=== PATIENT | male | born 1985 | race Caucasian/White ===

== ENCOUNTER 2018-03-12 10:38 | Inpatient (IN) | payer OTHER ==
[2018-03-12] MEDS ORDERED: NITROGLYCERIN OINT 1 INCH/GM PACKET TOPICAL STA (10:54)
[2018-03-12] MEDS ORDERED: IPRATROPIUM-ALBUTEROL 3 ML NEB INHALATION STA (10:54)
[2018-03-12] MEDS ORDERED: FUROSEMIDE 10 MG/ML 4 ML VIAL IV STA (10:54)
--- NOTE | 2018-03-12 10:57 | ED ---
General Adult HPI - General Chief complaint: Shortness of Breath Stated complaint: Shortness of Breath Time Seen by Provider: 03/12/18 10:50 Source: patient, RN notes reviewed Mode of arrival: wheelchair Limitations: no limitations - History of Present Illness Initial comments: Patient is a pleasant 32-year-old male presenting to the emergency department with difficulty breathing. Symptoms have been present for several weeks. Patient occasionally gets chest discomfort with exertion. Patient does have occasional mild cough. Patient did have flu symptoms several weeks ago however that has resolved. Patient did go to urgent care today and see Dr. Andrews. Dr. Andrews did call here requesting patient have further evaluation. He was concern for chest x-ray with cardiomegaly, possible pericardial effusion and requests echo. He also made mention of hypertension with blood pressure 210/128. There was some wheezing on exam. Patient does admit to having some swelling of his legs without any calf tenderness. - Related Data Home Medications Medication Instructions Recorded Confirmed Albuterol Inhaler [Ventolin Hfa 1 - 2 puff INHALATION RT-Q6H PRN 03/12/18 Inhaler] Aspirin EC [Ecotrin] 325 mg PO HS 03/12/18 03/12/18 Loratadine [Claritin] 10 mg PO DAILY 03/12/18 03/12/18 diphenhydrAMINE HCL [Benadryl] 50 mg PO HS PRN 03/12/18 03/12/18 Allergies Allergy/AdvReac Type Severity Reaction Status Date / Time peanut [Peanut Butter] Allergy Rash/Hives Verified 03/12/18 10:45 Penicillins AdvReac Unknown Verified 03/12/18 11:53 Review of Systems ROS Statement: Those systems with pertinent positive or pertinent negative responses have been documented in the HPI. ROS Other: All systems not noted in ROS Statement are negative. Constitutional: Denies: fever Eyes: Denies: eye pain ENT: Denies: ear pain Respiratory: Reports: cough, dyspnea Cardiovascular: Reports: chest pain, edema Endocrine: Denies: polydipsia Gastrointestinal: Denies: abdominal pain Genitourinary: Denies: dysuria Musculoskeletal: Denies: back pain Skin: Denies: rash Neurological: Denies: weakness Past Medical History Past Medical History: Thyroid Disorder Additional Past Medical History / Comment(s): morbid obesity History of Any Multi-Drug Resistant Organisms: None Reported Past Surgical History: No Surgical Hx Reported Past Psychological History: No Psychological Hx Reported Smoking Status: Former smoker Past Alcohol Use History: Occasional Past Drug Use History: None Reported General Exam Limitations: no limitations General appearance: alert, in no apparent distress, obese Head exam: Present: atraumatic Eye exam: Present: normal appearance Neck exam: Present: normal inspection Respiratory exam: Present: wheezes Cardiovascular Exam: Present: regular rate, normal rhythm Expanded Peripheral pulses: 2+: Radial (R), Radial (L), Dorsalis Pedis (R), Dorsalis Pedis (L) GI/Abdominal exam: Present: soft. Absent: tenderness, guarding Extremities exam: Present: pedal edema. Absent: calf tenderness Back exam: Present: normal inspection Neurological exam: Present: alert Psychiatric exam: Present: normal affect, normal mood Skin exam: Present: normal color Course Vital Signs 03/12/18 03/12/18 03/12/18 10:40 11:28 11:39 Temperature 98.3 F Pulse Rate 105 H 98 95 Respiratory 24 Rate Blood Pressure 228/159 O2 Sat by Pulse 97 Oximetry EKG Findings - EKG Comments: EKG Findings:: Sinus tachycardia 101. WI 164. QRS 90. QT 372. QTC 42. Normal axis. Normal QRS. No acute ST change. Medical Decision Making - Medical Decision Making Patient reevaluated and updated. Patient has continued hypertension. Case was discussed in detail with Dr. man, covering for Dr. Clements, who will admit for Dr. Andrews. Case also discussed in detail with Dr. Nickerson, who recommends losartan 50 twice a day, Coreg 25 twice a day, Lipitor 20 mg. No aspirin at this time secondary to concern for bleeding with hypertension. No heparin. - Lab Data Result diagrams: 03/12/18 11:05 03/12/18 11:05 Lab Results 03/12/18 03/12/18 03/12/18 Range/Units 11:05 11:05 11:05 WBC 10.8 H (3.8-10.6) k/uL RBC 4.56 (4.30-5.90) m/uL Hgb 12.6 L (13.0-17.5) gm/dL Hct 39.1 (39.0-53.0) % MCV 85.8 (80.0-100.0) fL MCH 27.6 (25.0-35.0) pg MCHC 32.1 (31.0-37.0) g/dL RDW 15.8 H (11.5-15.5) % Plt Count 231 (150-450) k/uL Neutrophils % 78 % Lymphocytes % 13 % Monocytes % 5 % Eosinophils % 3 % Basophils % 0 % Neutrophils # 8.4 H (1.3-7.7) k/uL Lymphocytes # 1.4 (1.0-4.8) k/uL Monocytes # 0.6 (0-1.0) k/uL Eosinophils # 0.3 (0-0.7) k/uL Basophils # 0.1 (0-0.2) k/uL Hypochromasia Slight PT (9.0-12.0) sec INR (<1.2) APTT (22.0-30.0) sec Sodium 140 (137-145) mmol/L Potassium 4.4 (3.5-5.1) mmol/L Chloride 104 (98-107) mmol/L Carbon Dioxide 25 (22-30) mmol/L Anion Gap 11 mmol/L BUN 16 (9-20) mg/dL Creatinine 1.04 (0.66-1.25) mg/dL Est GFR (CKD-EPI)AfAm >90 (>60 ml/min/1.73 sqM) Est GFR (CKD-EPI)NonAf >90 (>60 ml/min/1.73 sqM) Glucose 127 H (74-99) mg/dL Calcium 8.7 (8.4-10.2) mg/dL Total Bilirubin 0.8 (0.2-1.3) mg/dL AST 43 (17-59) U/L ALT 52 (21-72) U/L Alkaline Phosphatase 46 (38-126) U/L Total Creatine Kinase 405 H (55-170) U/L CK-MB (CK-2) 3.3 H* (0.0-2.4) ng/mL CK-MB (CK-2) Rel Index 0.8 Troponin I 0.051 H* (0.000-0.034) ng/mL NT-Pro-B Natriuret Pep pg/mL Total Protein 6.7 (6.3-8.2) g/dL Albumin 3.8 (3.5-5.0) g/dL 03/12/18 03/12/18 Range/Units 11:05 11:05 WBC (3.8-10.6) k/uL RBC (4.30-5.90) m/uL Hgb (13.0-17.5) gm/dL Hct (39.0-53.0) % MCV (80.0-100.0) fL MCH (25.0-35.0) pg MCHC (31.0-37.0) g/dL RDW (11.5-15.5) % Plt Count (150-450) k/uL Neutrophils % % Lymphocytes % % Monocytes % % Eosinophils % % Basophils % % Neutrophils # (1.3-7.7) k/uL Lymphocytes # (1.0-4.8) k/uL Monocytes # (0-1.0) k/uL Eosinophils # (0-0.7) k/uL Basophils # (0-0.2) k/uL Hypochromasia PT 10.3 (9.0-12.0) sec INR 1.1 (<1.2) APTT 22.8 (22.0-30.0) sec Sodium (137-145) mmol/L Potassium (3.5-5.1) mmol/L Chloride (98-107) mmol/L Carbon Dioxide (22-30) mmol/L Anion Gap mmol/L BUN (9-20) mg/dL Creatinine (0.66-1.25) mg/dL Est GFR (CKD-EPI)AfAm (>60 ml/min/1.73 sqM) Est GFR (CKD-EPI)NonAf (>60 ml/min/1.73 sqM) Glucose (74-99) mg/dL Calcium (8.4-10.2) mg/dL Total Bilirubin (0.2-1.3) mg/dL AST (17-59) U/L ALT (21-72) U/L Alkaline Phosphatase (38-126) U/L Total Creatine Kinase (55-170) U/L CK-MB (CK-2) (0.0-2.4) ng/mL CK-MB (CK-2) Rel Index Troponin I (0.000-0.034) ng/mL NT-Pro-B Natriuret Pep 1960 pg/mL Total Protein (6.3-8.2) g/dL Albumin (3.5-5.0) g/dL - Radiology Data Radiology results: image reviewed (Chest x-ray reviewed from Dr. Andrews does show some cardiomegaly and increased interstitial markings.) Critical Care Time Critical Care Time: Yes Total Critical Care Time: 33 Disposition Clinical Impression: Hypertensive emergency, Pericardial effusion Disposition: ADMITTED IP TO THIS [facility] Condition: Serious Is patient prescribed a controlled substance at d/c from ED?: No Referrals: Homero Andrews MD [Primary Care Provider] - 1-2 days Decision Time: 12:14
[2018-03-12 11:18] LABS: Basophils # (A) 0.1 k/uL (0-0.2); Basophils % (A) 0 %; Eosinophils # (A) 0.3 k/uL (0-0.7); Eosinophils % (A) 3 %; HCT 39.1 % (39.0-53.0); HGB 12.6 gm/dL (13.0-17.5); Hypochromasia Slight; Lymphocytes # (A) 1.4 k/uL (1.0-4.8); Lymphocytes % (A) 13 %; MCH 27.6 pg (25.0-35.0); MCHC 32.1 g/dL (31.0-37.0); MCV 85.8 fL (80.0-100.0); Mean Platelet Volume 7.4; Monocytes # (A) 0.6 k/uL (0-1.0); Monocytes % (A) 5 %; Neutrophils # (A) 8.4 k/uL (1.3-7.7); Neutrophils % (A) 78 %; Platelet Count 231 k/uL (150-450); RBC 4.56 m/uL (4.30-5.90); RDW 15.8 % (11.5-15.5); WBC 10.8 k/uL (3.8-10.6)
[2018-03-12 11:31] LABS: INR 1.1 (<1.2); Partial Thromboplastin Time 22.8 sec (22.0-30.0); Prothrombin Time 10.3 sec (9.0-12.0)
[2018-03-12 11:45] LABS: ALT 52 U/L (21-72); AST 43 U/L (17-59); Albumin 3.8 g/dL (3.5-5.0); Alkaline Phosphatase 46 U/L (38-126); Anion Gap 11 mmol/L; Blood Urea Nitrogen 16 mg/dL (9-20); Calcium 8.7 mg/dL (8.4-10.2); Carbon Dioxide 25 mmol/L (22-30); Chloride 104 mmol/L (98-107); Glucose 127 mg/dL (74-99); Sodium 140 mmol/L (137-145); Total Bilirubin 0.8 mg/dL (0.2-1.3); Total Protein 6.7 g/dL (6.3-8.2)
[2018-03-12 11:48] LABS: Potassium 4.4 mmol/L (3.5-5.1)
[2018-03-12 11:49] LABS: Creatine Kinase MB 3.3 ng/mL (0.0-2.4); Troponin I 0.051 ng/mL (0.000-0.034)
[2018-03-12] MEDS ORDERED: ENALAPRILAT 1.25 MG/ML 1 ML VIAL IVP STA (12:04)
[2018-03-12] MEDS ORDERED: NITROGLYCERIN SL TABS 0.4 MG TAB SUBLINGUAL PRN (12:14)
[2018-03-12] MEDS ORDERED: ATORVASTATIN 20 MG TAB PO STA (12:16)
[2018-03-12] MEDS: LOSARTAN 50 MG TAB PO SCH ×2 (12:48→22:22)
[2018-03-12] MEDS: CARVEDILOL 12.5 MG TAB PO SCH ×2 (12:48→17:19)
--- NOTE | 2018-03-12 16:58 | P.HPIM ---
History of Present Illness This is a pleasant 52 years old male with past medical history of morbid obesity , hypothyroidism, ex-smoker who presents because of dyspnea or several weeks duration associated with mild leg swelling. Patient states that his initial complaint was dyspnea which was a started 3 weeks ago and by the time he got an appointment with his PCP today his blood pressure was high with SBP 270 as per patient and they were concerned about his chest x-ray and EKG. As per report there was suspicion of pericardial disease for enlarged heart on the chest x- ray report. This was associated with worsening leg swelling and tenderness which is mild edema started yesterday as per patient. Patient denies any chest pain no dizziness or syncope. No change in urine or bowel habits. No fever. In the emergency room his troponins was noted to be 0.051. BNP 1960 sodium 140 potassium 4.4 creatinine 1.0 WBC mildly elevated at 10.8 K. Hemoglobin 12.6 and platelets 231 EKG shows sinus tachycardia at 101 BPM with QTC of 482. In the emergency room patient got Lasix 40 mg IV x1. Patient was admitted to the telemetry floor for evaluation of his symptoms. Cardiology team has been contacted by ED as per staff. Echo is done and result is pending Review of Systems CONSTITUTIONAL: No fever, no malaise, no fatigue. HEENT: No recent visual problems or hearing problems. Denied any sore throat. CARDIOVASCULAR: No orthopnea, PND, no palpitations, no syncope. PULMONARY: No shortness of breath, no cough, no hemoptysis. GASTROINTESTINAL: No diarrhea, no nausea, no vomiting, no abdominal pain. Normoactive bowel sounds. NEUROLOGICAL: No headaches, no weakness, no numbness. HEMATOLOGICAL: Denies any bleeding or petechiae. GENITOURINARY: Denies any burning micturition, frequency, or urgency. MUSCULOSKELETAL/RHEUMATOLOGICAL: Denies any joint pain, swelling, or any muscle pain. ENDOCRINE: Denies any polyuria or polydipsia. Past Medical History Past Medical History: Thyroid Disorder Additional Past Medical History / Comment(s): morbid obesity History of Any Multi-Drug Resistant Organisms: None Reported Past Surgical History: No Surgical Hx Reported Past Anesthesia/Blood Transfusion Reactions: No Reported Reaction Past Psychological History: No Psychological Hx Reported Smoking Status: Former smoker Past Alcohol Use History: Occasional Past Drug Use History: None Reported - Past Family History Father Family Medical History: Cancer, Diabetes Mellitus Additional Family Medical History / Comment(s): BRAIN C.A. Mother Family Medical History: Hypertension Medications and Allergies Home Medications Medication Instructions Recorded Confirmed Type Albuterol Inhaler [Ventolin Hfa 1 - 2 puff INHALATION RT-Q6H PRN 03/12/18 History Inhaler] Aspirin EC [Ecotrin] 325 mg PO HS 03/12/18 03/12/18 History Loratadine [Claritin] 10 mg PO DAILY 03/12/18 03/12/18 History diphenhydrAMINE HCL [Benadryl] 50 mg PO HS PRN 03/12/18 03/12/18 History Allergies Allergy/AdvReac Type Severity Reaction Status Date / Time peanut [Peanut Butter] Allergy Rash/Hives Verified 03/12/18 10:45 Penicillins AdvReac Unknown Verified 03/12/18 11:53 Physical Exam Vitals: Vital Signs Temp Pulse Pulse Resp BP BP Pulse Ox 03/12/18 14:50 98.0 F 90 18 172/104 97 03/12/18 13:57 98.4 F 95 18 203/127 91 L 03/12/18 13:38 202/128 03/12/18 12:50 103 H 20 234/124 96 03/12/18 12:27 97 20 222/131 03/12/18 12:10 100 20 235/143 03/12/18 11:39 95 03/12/18 11:28 98 03/12/18 10:40 98.3 F 105 H 24 228/159 97 Intake and Output 03/12/18 03/12/18 03/12/18 06:59 14:59 22:59 Output Total 2500 Balance -2500 Output: Urine 2500 Other: # Voids 0 Weight 200.987 kg GENERAL: The patient is alert and oriented x3, not in any acute distress. Morbidly obese HEENT: Pupils are round and equally reacting to light. EOMI. No scleral icterus. No conjunctival pallor. Normocephalic, atraumatic. No pharyngeal erythema. No thyromegaly. CARDIOVASCULAR: S1 and S2 present. No murmurs, rubs, or gallops. -PULMONARY: Chest is clear to auscultation, no wheezing or crackles. Patient looks tachypneic ABDOMEN: Soft, nontender, nondistended, normoactive bowel sounds. No palpable organomegaly. MUSCULOSKELETAL: No joint swelling or deformity. -EXTREMITIES: No cyanosis, clubbing, mild bilateral pedal edema. NEUROLOGICAL: Gross neurological examination did not reveal any focal deficits. SKIN: No rashes. Results CBC & Chem 7: 03/12/18 11:05 03/12/18 11:05 Labs: Abnormal Lab Results - Last 24 Hours (Table) 03/12/18 03/12/18 03/12/18 Range/Units 11:05 11:05 11:05 WBC 10.8 H (3.8-10.6) k/uL Hgb 12.6 L (13.0-17.5) gm/dL RDW 15.8 H (11.5-15.5) % Neutrophils # 8.4 H (1.3-7.7) k/uL Glucose 127 H (74-99) mg/dL Total Creatine Kinase 405 H (55-170) U/L CK-MB (CK-2) 3.3 H* (0.0-2.4) ng/mL Troponin I 0.051 H* (0.000-0.034) ng/mL Thrombosis Risk Factor Assmnt - Choose All That Apply Any of the Below Risk Factors Present?: Yes Each Factor Represents 1 point: Obesity (BMI >25), Swollen legs (current) Other Risk Factors: No Other congenital or acquired thrombophilia - If yes, enter type in comment: No Thrombosis Risk Factor Assessment Total Risk Factor Score: 2 Thrombosis Risk Factor Assessment Level: Low Risk Assessment and Plan Plan: -Dyspnea of 3-4 weeks. With positive troponin of 0.05. Enlarged heart on the chest x-ray suspicious for cardiomegaly. Echo is done and the result is pending. Cardiology consult -Uncontrolled blood pressure. On admission to 28, coming down to 17 2/104 -Bilateral leg swelling, patient got Lasix already. we'll check Doppler to rule out DVT -Mild leukocytosis, mostly reactive, follow-up level -Morbid obesity, recommended lifestyle modification follow-up as an outpatient DVT prophylaxis patient is mobile and his abdomen is mild cystitis concerns for pericardial effusion or hemorrhage. Risk of anticoagulation more than the benefit GI prophylaxis with Pepcid
[2018-03-12 19:11] LABS: Creatine Kinase MB 2.9 ng/mL (0.0-2.4)
[2018-03-12 19:12] LABS: Troponin I 0.046 ng/mL (0.000-0.034)
[2018-03-12] MEDS ORDERED: Potassium Replacement Protocol 1 EACH MISC MISCELLANE PRN (19:20)
[2018-03-12] MEDS: IPRATROPIUM-ALBUTEROL 3 ML NEB INHALATION PRN (20:52)
[2018-03-12 21:02] LABS: Magnesium 2.4 mg/dL (1.6-2.3); Potassium 4.3 mmol/L (3.5-5.1)
--- NOTE | 2018-03-12 21:43 | XR ---
EXAMINATION TYPE: XR chest 1V portable DATE OF EXAM: 03/12/2018 Comparison: Outside radiograph same day Clinical History: 32-year-old male short of breath Findings: Similar mild cardiomegaly and diffuse interstitial prominence similar to radiograph earlier today. No consolidation or pleural effusion seen. Impression: Similar cardiomegaly and interstitial prominence. Correlate for possible mild CHF.
--- NOTE | 2018-03-12 21:48 | US ---
EXAMINATION TYPE: US venous doppler duplex LE BI DATE OF EXAM: 03/12/2018 4:52 PM COMPARISON: NONE CLINICAL HISTORY: 32-year-old male Rule out DVT. Bilateral leg swelling. No hx of blood clots. HTN. SIDE PERFORMED: Bilateral TECHNIQUE: The lower extremity deep venous system is examined utilizing real time linear array sonog mirian with graded compression, doppler sonography and color-flow sonography. FINDINGS: VESSELS IMAGED: External Iliac Vein (EIV) Common Femoral Vein Deep Femoral Vein Greater Saphenous Vein * Femoral Vein Popliteal Vein Small Saphenous Vein * Proximal Calf Veins (* superficial vessels) Pipe Stripper notes:Suboptimal visualization due to patient body habitus Right Leg: Negative for DVT Left Leg: Negative for DVT IMPRESSION: The cuff presser indicates some technical limitations due to patient body habitus. Within this limitat ion, no evidence for DVT within the bilateral lower extremities imaged from the groin to the upper ca lves.
[2018-03-12] MEDS: FAMOTIDINE 20 MG/2 ML VIAL IV SCH (22:22)
[2018-03-13 00:17] LABS: Creatine Kinase MB 2.9 ng/mL (0.0-2.4); Troponin I 0.045 ng/mL (0.000-0.034)
[2018-03-13] MEDS: CARVEDILOL 12.5 MG TAB PO SCH ×2 (06:42→15:37)
[2018-03-13 06:54] LABS: Basophils # (A) 0.1 k/uL (0-0.2); Basophils % (A) 1 %; Eosinophils # (A) 0.3 k/uL (0-0.7); Eosinophils % (A) 3 %; HCT 37.3 % (39.0-53.0); HGB 11.9 gm/dL (13.0-17.5); Hypochromasia Slight; Lymphocytes # (A) 1.6 k/uL (1.0-4.8); Lymphocytes % (A) 14 %; MCH 27.9 pg (25.0-35.0); MCV 87.1 fL (80.0-100.0); Mean Platelet Volume 7.5; Monocytes # (A) 0.6 k/uL (0-1.0); Monocytes % (A) 6 %; Neutrophils # (A) 8.5 k/uL (1.3-7.7); Neutrophils % (A) 76 %; Platelet Count 234 k/uL (150-450); RBC 4.28 m/uL (4.30-5.90); RDW 15.6 % (11.5-15.5); WBC 11.3 k/uL (3.8-10.6)
[2018-03-13 07:01] LABS: ALT 56 U/L (21-72); AST 32 U/L (17-59); Albumin 3.4 g/dL (3.5-5.0); Alkaline Phosphatase 46 U/L (38-126); Anion Gap 9 mmol/L; Blood Urea Nitrogen 18 mg/dL (9-20); Calcium 8.6 mg/dL (8.4-10.2); Carbon Dioxide 26 mmol/L (22-30); Chloride 103 mmol/L (98-107); Cholesterol 119 mg/dL (<200); Glucose 116 mg/dL (74-99); HDL Cholesterol 28 mg/dL (40-60); LDL Cholesterol,Calculated 71 mg/dL (0-99); Potassium 4.7 mmol/L (3.5-5.1); Sodium 138 mmol/L (137-145); Total Bilirubin 0.6 mg/dL (0.2-1.3); Total Protein 5.8 g/dL (6.3-8.2); Triglycerides 99 mg/dL (<150)
--- NOTE | 2018-03-13 08:23 | P.PN ---
Subjective This is a pleasant 52 years old male with past medical history of morbid obesity , hypothyroidism, ex-smoker who presents because of dyspnea or several weeks duration associated with mild leg swelling. Patient states that his initial complaint was dyspnea which was a started 3 weeks ago and by the time he got an appointment with his PCP today his blood pressure was high with SBP 270 as per patient and they were concerned about his chest x-ray and EKG. As per report there was suspicion of pericardial disease for enlarged heart on the chest x- ray report. This was associated with worsening leg swelling and tenderness which is mild edema started yesterday as per patient. Patient denies any chest pain no dizziness or syncope. No change in urine or bowel habits. No fever. In the emergency room his troponins was noted to be 0.051. BNP 1960 sodium 140 potassium 4.4 creatinine 1.0 WBC mildly elevated at 10.8 K. Hemoglobin 12.6 and platelets 231 EKG shows sinus tachycardia at 101 BPM with QTC of 482. In the emergency room patient got Lasix 40 mg IV x1. Patient was admitted to the telemetry floor for evaluation of his symptoms. Cardiology team has been contacted by ED as per staff. Echo is done and result is pending 03/13/2018 Patient is still dyspneic with scattered wheezing. No chest pain, no fever, no abdominal pain or diarrhea. His leg swelling is improving Chest x-ray showing possible mild CHF, venous Doppler is negative for DVT. Patient still has mild leukocytosis . A febrile. Was 12.6 today's 11.9. BMP was unremarkable. Mild hyperglycemia check hemoglobin A1c. Troponin is are stable and mildly elevated at 0.45-0.51. Echocardiogram is a still pending. Patient was a started on Lipitor for heart lipid profile. Patient is able to eat and drink and IV fluids are kept KVO his blood pressure is better controlled butstill on the high size with SBP 150s-170s on Cozaar 10 and Coreg. He got 1 dose of Lasix yesterday. We will add hydrochlorothiazide Review of Systems CONSTITUTIONAL: No fever, no malaise, no fatigue. HEENT: No recent visual problems or hearing problems. Denied any sore throat. CARDIOVASCULAR: No orthopnea, PND, no palpitations, no syncope. PULMONARY: no cough, no hemoptysis. GASTROINTESTINAL: No diarrhea, no nausea, no vomiting, no abdominal pain. Normoactive bowel sounds. NEUROLOGICAL: No headaches, no weakness, no numbness. HEMATOLOGICAL: Denies any bleeding or petechiae. GENITOURINARY: Denies any burning micturition, frequency, or urgency. MUSCULOSKELETAL/RHEUMATOLOGICAL: Denies any joint pain, swelling, or any muscle pain. ENDOCRINE: Denies any polyuria or polydipsia. Objective - Vital Signs Vital signs: Vital Signs Temp 98.6 F 03/13/18 00:00 Pulse 74 03/13/18 04:26 Resp 18 03/13/18 04:26 BP 154/82 03/13/18 04:26 Pulse Ox 98 03/13/18 04:26 Intake & Output 03/12/18 03/13/18 03/13/18 18:59 06:59 18:59 Intake Total 1040 10 Output Total 2500 Balance -1460 10 Weight 200.987 kg 196.9 kg Intake: IV 10 .9 10 Oral 1040 Output: Urine 2500 Other: Voiding Method Toilet # Voids 0 0 - Exam GENERAL: The patient is alert and oriented x3, not in any acute distress. Morbidly obese HEENT: Pupils are round and equally reacting to light. EOMI. No scleral icterus. No conjunctival pallor. Normocephalic, atraumatic. No pharyngeal erythema. No thyromegaly. CARDIOVASCULAR: S1 and S2 present. No murmurs, rubs, or gallops. -PULMONARY: Chest is clear to auscultation, no wheezing or crackles. Patient looks tachypneic ABDOMEN: Soft, nontender, nondistended, normoactive bowel sounds. No palpable organomegaly. MUSCULOSKELETAL: No joint swelling or deformity. -EXTREMITIES: No cyanosis, clubbing, mild bilateral pedal edema. NEUROLOGICAL: Gross neurological examination did not reveal any focal deficits. SKIN: No rashes. - Labs CBC & Chem 7: 03/13/18 06:31 03/13/18 06:31 Labs: Abnormal Lab Results - Last 24 Hours (Table) 03/12/18 03/12/18 03/12/18 Range/Units 11:05 11:05 11:05 WBC 10.8 H (3.8-10.6) k/uL RBC (4.30-5.90) m/uL Hgb 12.6 L (13.0-17.5) gm/dL Hct (39.0-53.0) % RDW 15.8 H (11.5-15.5) % Neutrophils # 8.4 H (1.3-7.7) k/uL Glucose 127 H (74-99) mg/dL Magnesium (1.6-2.3) mg/dL Total Creatine Kinase 405 H (55-170) U/L CK-MB (CK-2) 3.3 H* (0.0-2.4) ng/mL Troponin I 0.051 H* (0.000-0.034) ng/mL Total Protein (6.3-8.2) g/dL Albumin (3.5-5.0) g/dL HDL Cholesterol (40-60) mg/dL 03/12/18 03/12/18 03/12/18 Range/Units 17:49 20:17 23:14 WBC (3.8-10.6) k/uL RBC (4.30-5.90) m/uL Hgb (13.0-17.5) gm/dL Hct (39.0-53.0) % RDW (11.5-15.5) % Neutrophils # (1.3-7.7) k/uL Glucose (74-99) mg/dL Magnesium 2.4 H (1.6-2.3) mg/dL Total Creatine Kinase 324 H 339 H (55-170) U/L CK-MB (CK-2) 2.9 H* 2.9 H* (0.0-2.4) ng/mL Troponin I 0.046 H* 0.045 H* (0.000-0.034) ng/mL Total Protein (6.3-8.2) g/dL Albumin (3.5-5.0) g/dL HDL Cholesterol (40-60) mg/dL 18 03/13/18 Range/Units 06:31 06:31 WBC 11.3 H (3.8-10.6) k/uL RBC 4.28 L (4.30-5.90) m/uL Hgb 11.9 L (13.0-17.5) gm/dL Hct 37.3 L (39.0-53.0) % RDW 15.6 H (11.5-15.5) % Neutrophils # 8.5 H (1.3-7.7) k/uL Glucose 116 H (74-99) mg/dL Magnesium (1.6-2.3) mg/dL Total Creatine Kinase (55-170) U/L CK-MB (CK-2) (0.0-2.4) ng/mL Troponin I (0.000-0.034) ng/mL Total Protein 5.8 L (6.3-8.2) g/dL Albumin 3.4 L (3.5-5.0) g/dL HDL Cholesterol 28 L (40-60) mg/dL Assessment and Plan Plan: -Dyspnea of 3-4 weeks. With positive troponin of 0.05. Enlarged heart on the chest x-ray suspicious for cardiomegaly. Echo is done and the result is pending. Cardiology consult and pulmonary consult -Uncontrolled blood pressure. On admission to 28/159, coming down to 17 2/104. Started on Coreg and losartan, we will add hydrochlorothiazide -Bilateral leg swelling, patient got Lasix already. Doppler is negative for DVT -Mild leukocytosis, mostly reactive, follow-up level. check UA -Morbid obesity, recommended lifestyle modification follow-up as an outpatient DVT prophylaxis: patient is mobile and there is a concerns for pericardial effusion or hemorrhage vs pericarditis . Risk of anticoagulation more than the benefit at this stage GI prophylaxis with Pepcid Prognosis is guarded
[2018-03-13] MEDS ORDERED: HYDROCHLOROTHIAZIDE 25 MG TAB PO SCH (09:00)
[2018-03-13] MEDS: TRIAMTERENE-HCTZ 37.5-25MG 1 EACH CAP PO SCH (09:36)
[2018-03-13] MEDS: LOSARTAN 50 MG TAB PO SCH ×2 (09:37→20:03)
[2018-03-13] MEDS: FAMOTIDINE 20 MG/2 ML VIAL IV SCH ×2 (09:37→20:02)
[2018-03-13] MEDS: ATORVASTATIN 20 MG TAB PO SCH (09:38)
--- NOTE | 2018-03-13 10:24 | ECHOF ---
Referral Reason:dyspnea MEASUREMENTS -------- HEIGHT: 182.9 cm WEIGHT: 200.9 kg BP: 228/159 IVSd: 1.6 cm (0.6 - 1.1) LVIDd: 5.8 cm (3.9 - 5.3) LVPWd: 1.4 cm (0.6 - 1.1) IVSs: 2.1 cm LVIDs: 3.9 cm LVPWs: 2.2 cm LA Diam: 4.6 cm (2.7 - 3.8) RVIDd: 3.8 cm (< 3.3) LAESV Index (A-L): 25.06 ml/m Ao Diam: 3.5 cm (2.0 - 3.7) AV Cusp: 2.3 cm (1.5 - 2.6) EPSS: 1.3 cm MV E Tito: 1.25 m/s MV DecT: 203 ms MV A Tito: 1.08 m/s MV E/A Ratio: 1.16 AV maxP.27 mmHg AV meanP.80 mmHg RAP: 15.00 mmHg RVSP: 73.47 mmHg MV EF SLOPE: 42.32 mm/s (70 - 150) MV EXCURSION: 20.30 mm (> 18.000) FINDINGS -------- Sinus rhythm. This was a technically adequate study. The left ventricular size is normal. There is moderate concentric left ventricular hypertrophy. O verall left ventricular systolic function is low-normal with, an EF between 50 - 55 %. The right ventricle is mild to moderately enlarged. Normal LA size by volume 22+/-6 ml/m2. The right atrium is normal in size. The aortic valve is trileaflet and appears structurally normal. Mild mitral annular calcification present. [id number] tricuspid regurgitation present. There is severe pulmonary hypertension. The rig ht ventricular systolic pressure, as measured by Doppler, is 73.47mmHg. Trace/mild (physiologic) pulmonic regurgitation. The aortic root size is normal. The inferior vena cava is dilated with no significant inspiratory collapse which is consistent estima pete right atrial pressure of 15 mmHg. There is a moderate, generalized pericardial effusion present. CONCLUSIONS -------- 1. Sinus rhythm. 2. This was a technically adequate study. 3. The left ventricular size is normal. 4. There is moderate concentric left ventricular hypertrophy. 5. Overall left ventricular systolic function is low-normal with, an EF between 50 - 55 %. 6. The right ventricle is mild to moderately enlarged. 7. Normal LA size by volume 22+/-6 ml/m2. 8. The right atrium is normal in size. 9. The aortic valve is trileaflet and appears structurally normal. 10. Mild mitral annular calcification present. 11. [id number] tricuspid regurgitation present. 12. There is severe pulmonary hypertension. 13. The right ventricular systolic pressure, as measured by Doppler, is 73.47mmHg. 14. Trace/mild (physiologic) pulmonic regurgitation. 15. The aortic root size is normal. 16. The inferior vena cava is dilated with no significant inspiratory collapse which is consistent es timated right atrial pressure of 15 mmHg. 17. There is a moderate, generalized pericardial effusion present. GOVERNMENT EMPLOYEE: Irene Cohwdary RDCS
--- NOTE | 2018-03-13 11:40 | CONS ---
CONSULTATION Mr. Harry is a 32-year-old male patient who presented to the emergency room complaining of blurring of vision and difficulty breathing. His symptoms have been ongoing for the last 2 to 3 weeks. He was found to be quite hypotensive and blood pressure were greater than 200 mmHg. I received a phone call from Dr. Esteban regarding this blood pressure, start carvedilol 25 mg twice daily and losartan 50 mg twice daily. When I asked him specifically about chest pain, shortness of breath, he did not have any specific chest pain, but he did say he was more short of breath than usual. He has never had high blood pressure before. His home medications include aspirin and Claritin and inhalers and Benadryl. ALLERGIES: TO PEANUTS AND PENICILLIN. REVIEW OF SYSTEMS: No fever, chills, or rigors. He does have a cough. He does have shortness of breath and mild vague chest discomfort. No nausea, vomiting, or diarrhea. No hematuria or dysuria. No strokes, seizures, skin lesions or musculoskeletal complaints. PAST MEDICAL HISTORY: Of a thyroid disorder and morbid obesity. He did lose about 100 pounds in the past and he had regained that weight. SOCIAL HISTORY: He was a former smoker. He stopped smoking 2 months back. Very occasional alcohol use. PHYSICAL EXAMINATION: His initial blood pressure was greater than 200 mmHg, now is about 154/82 mmHg, pulse rate is in the 70s to 80s. Respirations are normal. He looks comfortable. He is afebrile, 98.2 degrees Fahrenheit. Breath sounds are reduced bilaterally. No rhonchi. No crackles. Heart sounds S1, S2 are soft but distant. ABDOMEN: Soft. EXTREMITIES: He has no significant edema. A 12-lead ECG shows sinus rhythm without any ST-segment abnormalities. Left atrial enlargement is noted. QRS is narrow. Two-dimensional echo shows ejection fraction 50- 55%. Right ventricle is moderately enlarged. RVSP is elevated. He had venous Dopplers performed which did not show any evidence for DVT. LABORATORY DATA: His labs were reviewed. His white count is 11.3, hemoglobin 9.9, and troponin 0.05, 0.4 and 0.04. HDL is 28, LDL 71, cholesterol 119, cortisone 13, which is normal. NT proBNP 1960. IMPRESSION: 1. Hypertensive urgency, symptomatic. 2. Morbid obesity. 3. Borderline abnormality in troponin and minimal myocardial injury in the setting of uncontrolled severe hypertension. 4. Nondiabetic. 5. History of smoking, but he stopped 2 months back. SUGGEST: Control of blood pressure with carvedilol, losartan, and diuretics. I will increase the dose of losartan to 100 mg in the morning and 50 mg in the evening. I will change his diuretic to Dyazide and then continue with carvedilol for now. In addition, secondary hypertension workup should be performed. I will send serum metanephrines and serum aldosterone. Cortisol is normal. Renal artery MRI should also be performed. In addition, I had a very detailed discussion with him regarding weight loss, salt restriction, carbohydrate reduction, intake reduction and weight loss measures, smoking cessation and minimizing alcohol although he does not drink regularly at all and compliance with medical treatment. I will see him in followup as an outpatient. At this time, I would simply control his blood pressure and further cardiac workup will be performed as an outpatient. NIEVES / VLADN: [id number] /
--- NOTE | 2018-03-13 13:17 | P.CNPUL ---
History of Present Illness Consult date: 03/13/18 Reason for consult: dyspnea History of present illness: A 32-year-old obese male patient with known history of hypothyroidism, presented to the hospital because of progressive increasing shortness of breath upper the past 2 weeks in addition to lower extremity edema. Apparently the patient had quit smoking a few months back. He developed a symptoms of bronchitis and he was having increased dyspnea cough chest tightness and wheezing. Subsequently he became progressively more short of breath and he presented to his primary care physician's office where he was noted to have a systolic blood pressure in the 270 range. Patient was immediately referred to the emergency department. The patient's chest x-ray showed cardiomegaly and there is a water bottle #which raises the suspicion for pericardial effusion. Nevertheless, the echocardiogram showed moderate concentric left ventricular hypertrophy with an ejection fraction of 50-55%. There was moderate amount of generalized pericardial effusion. There is also severe pulmonary hypertension with a PA pressure of around 73 mmHg. The patient denies having any chest a child bronchial asthma. His weight has been going up and probably sinus related to flu the condition of the patient has developed increased lower extremity edema. He has typical signs infusion obstructive sleep apnea including loud snoring, witnessed apneas as reported by the girlfriend and excessive hypersomnia and sleepiness. No angina. No palpitations. No cardiac arrhythmias. No previous history of DVT or pulmonary embolism. The patient was placed on diuretics in the emergency department to which he is found at. His troponins are minimally elevated at 0.05, nonspecific findings. BNP level is 1960. Rest of the electrodes are all within normal limits. Thyroid function test shows a normal TSH. Doppler of the lower extremity shows no evidence of any DVT. Review of Systems Constitutional: Reports daytime sleepiness, Reports weight gain Eyes: denies blurred vision, denies bulging eye, denies decreased vision Ears: deny: decreased hearing, ear discharge, earache Ears, nose, mouth and throat: Denies headache, Denies sore throat Cardiovascular: Reports decreased exercise tolerance, Reports dyspnea on exertion, Reports shortness of breath Respiratory: Reports cough, Reports dyspnea, Reports wheezing Gastrointestinal: Denies abdominal pain, Denies diarrhea, Denies nausea, Denies vomiting Genitourinary: Reports as per HPI Musculoskeletal: Reports as per HPI Musculoskeletal: bilateral: ankle swelling, absent: ankle pain, ankle stiffness Integumentary: Denies pruritus, Denies rash Neurological: Denies numbness, Denies weakness Psychiatric: Denies anxiety, Denies depression Endocrine: Denies fatigue, Denies weight change Hematologic/Lymphatic: Reports as per HPI Allergic/Immunologic: Reports as per HPI Past Medical History Past Medical History: Thyroid Disorder Additional Past Medical History / Comment(s): morbid obesity , hypothyroidism History of Any Multi-Drug Resistant Organisms: None Reported Past Surgical History: No Surgical Hx Reported Past Anesthesia/Blood Transfusion Reactions: No Reported Reaction Past Psychological History: No Psychological Hx Reported Smoking Status: Former smoker Past Alcohol Use History: Occasional Past Drug Use History: None Reported - Past Family History Father Family Medical History: Cancer, Diabetes Mellitus Additional Family Medical History / Comment(s): BRAIN C.A. Mother Family Medical History: Hypertension Medications and Allergies Home Medications Medication Instructions Recorded Confirmed Type Albuterol Inhaler [Ventolin Hfa 1 - 2 puff INHALATION RT-Q6H PRN 03/12/18 History Inhaler] Aspirin EC [Ecotrin] 325 mg PO HS 03/12/18 03/12/18 History Loratadine [Claritin] 10 mg PO DAILY 03/12/18 03/12/18 History diphenhydrAMINE HCL [Benadryl] 50 mg PO HS PRN 03/12/18 03/12/18 History Allergies Allergy/AdvReac Type Severity Reaction Status Date / Time peanut [Peanut Butter] Allergy Rash/Hives Verified 03/12/18 10:45 Penicillins AdvReac Unknown Verified 03/12/18 11:53 Physical Exam Vitals: Vital Signs Temp Pulse Pulse Resp BP BP Pulse Ox 03/13/18 08:00 98.2 F 80 18 129/81 99 03/13/18 04:26 74 18 154/82 98 03/13/18 00:00 98.6 F 79 18 175/102 97 03/12/18 21:08 92 03/12/18 20:52 94 93 L 03/12/18 20:00 97.9 F 81 18 169/70 94 L 03/12/18 14:50 98.0 F 90 18 172/104 97 03/12/18 13:57 98.4 F 95 18 203/127 91 L 03/12/18 13:38 202/128 Intake and Output 03/12/18 03/13/18 03/13/18 22:59 06:59 14:59 Intake Total 1040 10 Output Total 700 Balance 1040 10 -700 Intake: IV 10 .9 10 Oral 1040 Output: Urine 700 Other: Voiding Method Toilet Toilet # Voids 0 0 Weight 196.9 kg Morbidly obese, comfortable likely distress Head exam was generally normal. There was no scleral icterus or corneal arcus. Mucous membranes were moist. Neck is short and supple and the patient is a Mallampati class IV. No goiter or neck masses. Lungs sounds are diminished bilaterally along with scattered expiratory wheezes throughout the lung avila. Cardiac exam revealed the PMI to be normally situated and sized. The rhythm was regular and no extrasystoles were noted during several minutes of auscultation. The first and second heart sounds were normal and physiologic splitting of the second heart sound was noted. There were no murmurs, rubs, clicks, or gallops. Abdominal exam revealed normal bowel sounds. The abdomen was soft, non-tender, and without masses, organomegaly, or appreciable enlargement of the abdominal aorta. Extremities show +1-2 pitting edema and there is no cyanosis or clubbing. Neurologically awake and alert and there is no focal logical deficits. Examination of the skin revealed no evidence of significant rashes, suspicious appearing nevi or other concerning lesions. Results - Laboratory Findings CBC and BMP: 03/13/18 06:31 03/13/18 06:31 PT/INR, D-dimer PT 10.3 sec (9.0-12.0) 03/12/18 11:05 INR 1.1 (<1.2) 03/12/18 11:05 Abnormal lab findings: Abnormal Labs 03/12/18 03/12/18 03/12/18 11:05 11:05 11:05 WBC 10.8 H RBC Hgb 12.6 L Hct RDW 15.8 H Neutrophils # 8.4 H Glucose 127 H Magnesium Total Creatine Kinase 405 H CK-MB (CK-2) 3.3 H* Troponin I 0.051 H* Total Protein Albumin HDL Cholesterol 03/12/18 03/12/18 03/12/18 17:49 20:17 23:14 WBC RBC Hgb Hct RDW Neutrophils # Glucose Magnesium 2.4 H Total Creatine Kinase 324 H 339 H CK-MB (CK-2) 2.9 H* 2.9 H* Troponin I 0.046 H* 0.045 H* Total Protein Albumin HDL Cholesterol 03/13/18 03/13/18 06:31 06:31 WBC 11.3 H RBC 4.28 L Hgb 11.9 L Hct 37.3 L RDW 15.6 H Neutrophils # 8.5 H Glucose 116 H Magnesium Total Creatine Kinase CK-MB (CK-2) Troponin I Total Protein 5.8 L Albumin 3.4 L HDL Cholesterol 28 L - Diagnostic Findings Chest x-ray: image reviewed Assessment and Plan Plan: Assessment 1 dyspnea, multifactorial. The decompensating factor is most likely CHF with diastolic dysfunction and hypertensive heart disease. The patient also has a considerable degree of pulmonary hypertension and these to be further investigated. This raises the suspicion for a sleep breathing disorder/ obstructive sleep apnea. This also raises the suspicion for pulmonary embolism mesh that the patient also has some limited amount of troponin leak 2 morbid obesity BMI 58.9 3 lower extremity edema 4 hypertensive urgency current blood pressure is under better control 5 hypothyroidism 6 moderate degree of pericardial effusion without evidence of temporal not 7 acute bronchitis 8 hypertensive heart disease with concentric left ventricle hypertrophy/ diastolic heart failure Plan Encourage weight loss. Blood pressure control and the patient has been started on a combination of Coreg and Cozaar in addition to Dyazide and his current blood pressure is 129/68. The patient however will need IV Lasix to optimize her status knowing that he still has significant amount of edema lower ext bilaterally. Will place on IV Lasix 20 mg every 12 hours. The patient will need a CT angios the chest to rule out pulmonary embolism. The patient will need an outpatient sleep study looking for any significant sleep breathing disorder/obstructive sleep apnea the suspicion for JACY's very high. Continue DuoNeb the right seems [id number]. We will give the patient Solu-Medrol 40 g every 12 hours regarding his bronchospasm wheezing that probably contributed to his increased shortness of breath. He will need an outpatient pulmonary function tests. He is an ex-smoker. We'll continue to follow.
[2018-03-13] MEDS: FUROSEMIDE 10 MG/ML 2 ML VIAL IV SCH ×2 (15:37→20:03)
[2018-03-13] MEDS: methylPREDNISolone SOD SUCCI 40 MG/ML 1 ML VIAL IV SCH ×2 (15:37→20:03)
--- NOTE | 2018-03-13 15:51 | CT ---
CT CHEST FOR PULMONARY EMBOLISM. EXAMINATION TYPE: CT chest angio for PE DATE OF EXAM: 03/13/2018 INDICATION: SOB CT DLP: 1403 mGycm, Automated exposure control for dose reduction was used. CONTRAST: Patient injected with 100 mL of Isovue 370. COMPARISON: NONE TECHNIQUE: CT of the chest is performed on a spiral scan at 2 mm thick sections. Study is performed with intravenous contrast timed for evaluation for pulmonary embolism. This will limit additional po rtions of the evaluation. 3-D MIP images reconstructed by the technologist are reviewed on the compu ter in the coronal and sagittal planes. FINDINGS: No persistent filling defects are evident to suggest an acute pulmonary embolism. Contrast opacificat ion of the pulmonary arteries hours slightly limited causing limitation on the evaluation. Right to l eft ventricle ratio is less than 1. No reflux into the hepatic veins is evident. There is minimal ref lux in the distal inferior vena cava. There is a moderate pericardial effusion. No mediastinal or hilar adenopathy enlarged by CT criteria is evident. The ascending aorta diameter at the level of the main pulmonary artery is 4.1 cm. The main pulmonary artery diameter at the bifur cation is 3.2 cm. There is a 0.7 cm calcification within the posterior right lung base. Some pneumonitis change surroun ds this area. Lung avila otherwise appear clear. Limited CT section through the upper abdomen are unremarkable. IMPRESSIONS: 1. Pericardial effusion. This appears moderate. 2. Aneurysmal dilatation of the ascending thoracic aorta 4.1 cm. 3. Small right pleural effusion. 4. No acute pulmonary embolism.
[2018-03-14] MEDS: CARVEDILOL 12.5 MG TAB PO SCH ×2 (06:06→17:21)
[2018-03-14 07:21] LABS: Basophils % (A) 0 %; Eosinophils % (A) 0 %; HCT 39.1 % (39.0-53.0); HGB 12.3 gm/dL (13.0-17.5); Hypochromasia Moderate; Lymphocytes # (A) 1.2 k/uL (1.0-4.8); Lymphocytes % (A) 10 %; MCH 27.4 pg (25.0-35.0); MCHC 31.4 g/dL (31.0-37.0); MCV 87.3 fL (80.0-100.0); Mean Platelet Volume 7.6; Monocytes # (A) 0.4 k/uL (0-1.0); Monocytes % (A) 3 %; Neutrophils # (A) 9.8 k/uL (1.3-7.7); Neutrophils % (A) 85 %; Platelet Count 266 k/uL (150-450); RBC 4.48 m/uL (4.30-5.90); RDW 15.4 % (11.5-15.5); WBC 11.4 k/uL (3.8-10.6)
[2018-03-14 07:39] LABS: ALT 50 U/L (21-72); AST 26 U/L (17-59); Albumin 3.6 g/dL (3.5-5.0); Alkaline Phosphatase 45 U/L (38-126); Anion Gap 11 mmol/L; Blood Urea Nitrogen 18 mg/dL (9-20); Calcium 9.1 mg/dL (8.4-10.2); Carbon Dioxide 29 mmol/L (22-30); Chloride 102 mmol/L (98-107); Glucose 136 mg/dL (74-99); Potassium 4.7 mmol/L (3.5-5.1); Sodium 142 mmol/L (137-145); Total Bilirubin 0.6 mg/dL (0.2-1.3); Total Protein 6.2 g/dL (6.3-8.2)
[2018-03-14] MEDS: IPRATROPIUM-ALBUTEROL 3 ML NEB INHALATION PRN (07:49)
--- NOTE | 2018-03-14 08:39 | P.PN ---
Subjective This is a pleasant 52 years old male with past medical history of morbid obesity , hypothyroidism, ex-smoker who presents because of dyspnea or several weeks duration associated with mild leg swelling. Patient states that his initial complaint was dyspnea which was a started 3 weeks ago and by the time he got an appointment with his PCP today his blood pressure was high with SBP 270 as per patient and they were concerned about his chest x-ray and EKG. As per report there was suspicion of pericardial disease for enlarged heart on the chest x- ray report. This was associated with worsening leg swelling and tenderness which is mild edema started yesterday as per patient. Patient denies any chest pain no dizziness or syncope. No change in urine or bowel habits. No fever. In the emergency room his troponins was noted to be 0.051. BNP 1960 sodium 140 potassium 4.4 creatinine 1.0 WBC mildly elevated at 10.8 K. Hemoglobin 12.6 and platelets 231 EKG shows sinus tachycardia at 101 BPM with QTC of 482. In the emergency room patient got Lasix 40 mg IV x1. Patient was admitted to the telemetry floor for evaluation of his symptoms. Cardiology team has been contacted by ED as per staff. Echo is done and result is pending 03/13/2018 Patient is still dyspneic with scattered wheezing. No chest pain, no fever, no abdominal pain or diarrhea. His leg swelling is improving Chest x-ray showing possible mild CHF, venous Doppler is negative for DVT. Patient still has mild leukocytosis . A febrile. Was 12.6 today's 11.9. BMP was unremarkable. Mild hyperglycemia check hemoglobin A1c. Troponin is are stable and mildly elevated at 0.45-0.51. Echocardiogram is a still pending. Patient was a started on Lipitor for heart lipid profile. Patient is able to eat and drink and IV fluids are kept KVO his blood pressure is better controlled butstill on the high size with SBP 150s-170s on Cozaar 10 and Coreg. He got 1 dose of Lasix yesterday. We will add hydrochlorothiazide Review of Systems CONSTITUTIONAL: No fever, no malaise, no fatigue. HEENT: No recent visual problems or hearing problems. Denied any sore throat. CARDIOVASCULAR: No orthopnea, PND, no palpitations, no syncope. PULMONARY: no cough, no hemoptysis. GASTROINTESTINAL: No diarrhea, no nausea, no vomiting, no abdominal pain. Normoactive bowel sounds. NEUROLOGICAL: No headaches, no weakness, no numbness. HEMATOLOGICAL: Denies any bleeding or petechiae. GENITOURINARY: Denies any burning micturition, frequency, or urgency. MUSCULOSKELETAL/RHEUMATOLOGICAL: Denies any joint pain, swelling, or any muscle pain. ENDOCRINE: Denies any polyuria or polydipsia. Objective - Vital Signs Vital signs: Vital Signs Temp 97.7 F 03/14/18 04:06 Pulse 84 03/14/18 08:02 Resp 16 03/14/18 04:09 BP 148/69 03/14/18 04:06 Pulse Ox 92 L 03/14/18 04:06 Intake & Output 03/13/18 03/14/18 03/14/18 18:59 06:59 18:59 Intake Total 600 640 240 Output Total 700 2300 Balance -100 -1660 240 Weight 194.8 kg Intake: IV 40 .9 30 Invasive Line 1 10 Oral 600 600 240 Output: Urine 700 2300 Other: Voiding Method Toilet Toilet # Voids 1 - Exam GENERAL: The patient is alert and oriented x3, not in any acute distress. Morbidly obese HEENT: Pupils are round and equally reacting to light. EOMI. No scleral icterus. No conjunctival pallor. Normocephalic, atraumatic. No pharyngeal erythema. No thyromegaly. CARDIOVASCULAR: S1 and S2 present. No murmurs, rubs, or gallops. -PULMONARY: Chest is clear to auscultation, no wheezing or crackles. Patient looks tachypneic ABDOMEN: Soft, nontender, nondistended, normoactive bowel sounds. No palpable organomegaly. MUSCULOSKELETAL: No joint swelling or deformity. -EXTREMITIES: No cyanosis, clubbing, mild bilateral pedal edema. NEUROLOGICAL: Gross neurological examination did not reveal any focal deficits. SKIN: No rashes. - Labs CBC & Chem 7: 03/14/18 06:55 03/14/18 06:55 Labs: Abnormal Lab Results - Last 24 Hours (Table) 03/14/18 03/14/18 Range/Units 06:55 06:55 WBC 11.4 H (3.8-10.6) k/uL Hgb 12.3 L (13.0-17.5) gm/dL Neutrophils # 9.8 H (1.3-7.7) k/uL Glucose 136 H (74-99) mg/dL Total Protein 6.2 L (6.3-8.2) g/dL Assessment and Plan Plan: -Dyspnea of 3-4 weeks. With positive troponin of 0.05. Enlarged heart on the chest x-ray suspicious for cardiomegaly. Echo : EF 55% mild RV enlargement, moderate concentric LVH. Severe pulmonary hypertension with systolic pressure at 73.4 and moderate pericardial effusion. CTPA is negative for PE. Cardiology consult and pulmonary consult . They recommended outpatient sleep study. Continue with steroids for possible reactive airway disease. Continue with IV Lasix -Uncontrolled blood pressure. On admission to 270/159, coming down to 148/69. Started on Coreg and losartan, we will add hydrochlorothiazide -Bilateral leg swelling, patient got Lasix already. Doppler is negative for DVT , could be related to his right heart disease -Mild leukocytosis, mostly reactive, follow-up level. check UA: Pending -Morbid obesity, recommended lifestyle modification follow-up as an outpatient -Aneurysmal dilation station of the thoracic ascending aorta at 4.1 cm. DVT prophylaxis: patient is mobile and there is a concerns for pericardial effusion or hemorrhage vs pericarditis . Risk of anticoagulation more than the benefit at this stage GI prophylaxis with Pepcid PT OT is pending Prognosis is guarded
[2018-03-14] MEDS: LOSARTAN 50 MG TAB PO SCH ×2 (08:50→20:28)
[2018-03-14] MEDS: TRIAMTERENE-HCTZ 37.5-25MG 1 EACH CAP PO SCH (08:51)
[2018-03-14] MEDS: ATORVASTATIN 20 MG TAB PO SCH (08:51)
[2018-03-14] MEDS: FUROSEMIDE 10 MG/ML 2 ML VIAL IV SCH ×2 (08:52→20:27)
[2018-03-14] MEDS: FAMOTIDINE 20 MG/2 ML VIAL IV SCH ×2 (08:52→20:27)
[2018-03-14] MEDS: methylPREDNISolone SOD SUCCI 40 MG/ML 1 ML VIAL IV SCH ×2 (08:52→20:28)
--- NOTE | 2018-03-14 10:50 | P.PN ---
Subjective Progress Note Date: 03/14/18 Principal diagnosis: Shortness of breath secondary to diastolic congestive heart failure and secondary pulmonary hypertension. A 32-year-old obese male patient with known history of hypothyroidism, presented to the hospital because of progressive increasing shortness of breath upper the past 2 weeks in addition to lower extremity edema. Apparently the patient had quit smoking a few months back. He developed a symptoms of bronchitis and he was having increased dyspnea cough chest tightness and wheezing. Subsequently he became progressively more short of breath and he presented to his primary care physician's office where he was noted to have a systolic blood pressure in the 270 range. Patient was immediately referred to the emergency department. The patient's chest x-ray showed cardiomegaly and there is a water bottle #which raises the suspicion for pericardial effusion. Nevertheless, the echocardiogram showed moderate concentric left ventricular hypertrophy with an ejection fraction of 50-55%. There was moderate amount of generalized pericardial effusion. There is also severe pulmonary hypertension with a PA pressure of around 73 mmHg. The patient denies having any chest a child bronchial asthma. His weight has been going up and probably sinus related to flu the condition of the patient has developed increased lower extremity edema. He has typical signs infusion obstructive sleep apnea including loud snoring, witnessed apneas as reported by the girlfriend and excessive hypersomnia and sleepiness. No angina. No palpitations. No cardiac arrhythmias. No previous history of DVT or pulmonary embolism. The patient was placed on diuretics in the emergency department to which he is found at. His troponins are minimally elevated at 0.05, nonspecific findings. BNP level is 1960. Rest of the electrodes are all within normal limits. Thyroid function test shows a normal TSH. Doppler of the lower extremity shows no evidence of any DVT. Patient was reevaluated today on 03/14/2018, feeling much better, continues to diurese with diuretics quite nicely. Blood pressures seems to be better controlled. His echocardiogram showed moderate pericardial effusion that being investigated by cardiology. He had good LV function. And he had elevated right -sided pressures consistent with pulmonary hypertension. Clinically however the patient is breathing better feeling much better compared to how he felt on admission. CBC is relatively normal basic metabolic profile is relatively normal, continues to have elevated CPK and elevated troponin. Patient is being evaluated by cardiology. Objective - Vital Signs Vital signs: Vital Signs Temp 97.9 F 03/14/18 08:50 Pulse 72 03/14/18 08:50 Resp 18 03/14/18 08:50 BP 137/81 03/14/18 08:50 Pulse Ox 99 03/14/18 08:50 Intake & Output 03/13/18 03/14/18 03/14/18 18:59 06:59 18:59 Intake Total 600 640 240 Output Total 700 2300 Balance -100 -1660 240 Weight 194.8 kg Intake: IV 40 .9 30 Invasive Line 1 10 Oral 600 600 240 Output: Urine 700 2300 Other: Voiding Method Toilet Toilet Toilet # Voids 1 - Exam Physical Exam: Revealed a 32-year-old white male, obese, comfortable, in no distress. HEENT:[Neck is supple.] [No neck masses.] [No thyromegaly.] [No JVD.] Crowding of the posterior pharynx noted. Chest: [Clear throughout, no crackles, no rhonchi, no wheezes.] Cardiac Exam: [Normal S1 and S2, no S3 gallop, no murmur.] Abdomen: Obese, [Soft, nontender, no megaly, no rebound, no guarding, normal bowel sounds.] Extremities: [No clubbing, 1+ bipedal edema, no cyanosis.] Neurological Exam: [No focal neurologic deficit.] Lymphatics: No lymphadenopathy. Psychiatric: Normal mood affect and mental status examination. Skin: No rashes, no erythema. - Labs CBC & Chem 7: 03/14/18 06:55 03/14/18 06:55 Labs: Abnormal Lab Results - Last 24 Hours (Table) 03/14/18 03/14/18 Range/Units 06:55 06:55 WBC 11.4 H (3.8-10.6) k/uL Hgb 12.3 L (13.0-17.5) gm/dL Neutrophils # 9.8 H (1.3-7.7) k/uL Glucose 136 H (74-99) mg/dL Total Protein 6.2 L (6.3-8.2) g/dL Assessment and Plan Assessment: 1 dyspnea, multifactorial. The decompensating factor is most likely CHF with diastolic dysfunction and hypertensive heart disease. The patient also has a considerable degree of pulmonary hypertension and these to be further investigated. This raises the suspicion for a sleep breathing disorder/ obstructive sleep apnea. CT of the chest failed to show probable embolic disease. 2 morbid obesity BMI 58.9 3 lower extremity edema 4 hypertensive urgency current blood pressure is under better control 5 hypothyroidism 6 moderate degree of pericardial effusion without evidence of temporal not 7 acute bronchitis 8 hypertensive heart disease with concentric left ventricle hypertrophy/ diastolic heart failure [address] of the chest for pulmonary embolism, hence his pulmonary hypertension is not related to thrombolic disease. 10 secondary pulmonary hypertension needs to be further investigated on outpatient basis. Recommendation: Continue diuretics, continue blood pressure medications, will need to be evaluated on outpatient basis for obstructive sleep apnea syndrome. Consider discharge planning once the patient is cleared by cardiology. Time with Patient: Less than 30
[2018-03-14 11:20] LABS: Hemoglobin A1C 5.4 % (4.0-6.0)
--- NOTE | 2018-03-14 14:44 | P.PN ---
Subjective Progress Note Date: 03/14/18 This is a pleasant 32-year-old gentleman with history of morbid obesity, hypothyroidism, prior smoking history, states he quit smoking about a month and a half ago, presented to the hospital with a 3 week duration of worsening shortness of breath. He also states that he noticed significant edema in his bilateral lower extremities. On arrival here patient was found to be significantly hypertensive, he was seen in consultation by Dr. Rosado. Blood pressure today 144/90 with a heart rate in the 70s, temperature 97.7 with 99% on 2 L of oxygen white blood cell count 11.4, hemoglobin 12.3, platelet count 266. Sodium 142, potassium 4.7, BUN 18, creatinine 0.9. Cortisol level 13. Echocardiogram with Doppler study was performed which revealed an ejection fraction of 50-55%, RV is mild to moderately enlarged, mild to moderate tricuspid regurg, severe pulmonary hypertension, moderate generalized pericardial effusion. 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 No mediastinal or hilar adenopathy. At the time of my examination this morning, patient overall states he is feeling significantly better. He did diurese well through the night last night, his weight is down 2 kg today. I pressure 136/80, heart rate in the 70s, 99% on 2 L of oxygen. Objective - Vital Signs Vital signs: Vital Signs Temp 97.7 F 03/14/18 12:00 Pulse 74 03/14/18 12:00 Resp 18 03/14/18 12:00 BP 144/96 03/14/18 12:00 Pulse Ox 99 03/14/18 12:00 Intake & Output 03/13/18 03/14/18 03/14/18 18:59 06:59 18:59 Intake Total 600 640 462 Output Total 700 2300 Balance -100 -1660 462 Weight 194.8 kg Intake: IV 40 .9 30 Invasive Line 1 10 Oral 600 600 462 Output: Urine 700 2300 Other: Voiding Method Toilet Toilet Toilet # Voids 1 - Exam GENERAL: The patient is alert and oriented x3, not in any acute distress. Morbidly obese HEENT: Pupils are round and equally reacting to light. EOMI. No scleral icterus. No conjunctival pallor. Normocephalic, atraumatic. No pharyngeal erythema. No thyromegaly. CARDIOVASCULAR: S1 and S2 present. No murmurs, rubs, or gallops. -PULMONARY: Chest is clear to auscultation, no wheezing or crackles. Patient looks tachypneic ABDOMEN: Soft, nontender, nondistended, normoactive bowel sounds. No palpable organomegaly. MUSCULOSKELETAL: No joint swelling or deformity. -EXTREMITIES: No cyanosis, clubbing, mild bilateral pedal edema. NEUROLOGICAL: Gross neurological examination did not reveal any focal deficits. SKIN: No rashes. - Labs CBC & Chem 7: 03/14/18 06:55 03/14/18 06:55 Labs: Abnormal Lab Results - Last 24 Hours (Table) 03/14/18 03/14/18 Range/Units 06:55 06:55 WBC 11.4 H (3.8-10.6) k/uL Hgb 12.3 L (13.0-17.5) gm/dL Neutrophils # 9.8 H (1.3-7.7) k/uL Glucose 136 H (74-99) mg/dL Total Protein 6.2 L (6.3-8.2) g/dL Assessment and Plan Plan: Assessment and plan #1 congestive heart failure, preserved left ventricular systolic function, acute #2 hypertensive urgency #3 morbid obesity #4 hypothyroidism #5 moderate pericardial effusion noted on echo and computed tomography scan, computed tomography scan did not reveal any evidence of significant mass, no pulmonary embolism. Plan From cardiology's perspective, we'll continue current medications for optimal blood pressure management. We would also recommend to repeat an echocardiogram with Doppler study one week post discharge in the office with Dr. Rosado to follow-up on the pericardial effusion. DNP note has been reviewed, I agree with a documented findings and plan of care. Patient was seen and examined.
[2018-03-14 15:28] LABS: Appearance,Urine Clear (Clear); Bilirubin,Urine Negative (Negative); Blood,Urine Negative (Negative); Color,Urine Light Yellow; Glucose,Urine (UA) Negative (Negative); Ketones,Urine Negative (Negative); Leukocyte Esterase,Urine Negative (Negative); Nitrite,Urine Negative (Negative); PH, Urine 6.5 (5.0-8.0); Protein,Urine Negative (Negative); Specific Gravity,Urine 1.007 (1.001-1.035); Urobilinogen,Urine <2.0 mg/dL (<2.0)
[2018-03-14 15:49] VITALS: BMI 58.2
[2018-03-15 06:40] LABS: ALT 48 U/L (21-72); AST 21 U/L (17-59); Albumin 3.4 g/dL (3.5-5.0); Alkaline Phosphatase 41 U/L (38-126); Anion Gap 8 mmol/L; Blood Urea Nitrogen 21 mg/dL (9-20); Calcium 9.1 mg/dL (8.4-10.2); Carbon Dioxide 29 mmol/L (22-30); Chloride 100 mmol/L (98-107); Glucose 130 mg/dL (74-99); Sodium 137 mmol/L (137-145); Total Bilirubin 0.4 mg/dL (0.2-1.3)
[2018-03-15 06:47] LABS: Basophils % (A) 0 %; Eosinophils % (A) 0 %; HCT 39.1 % (39.0-53.0); HGB 12.3 gm/dL (13.0-17.5); Hypochromasia Slight; Lymphocytes # (A) 1.2 k/uL (1.0-4.8); Lymphocytes % (A) 9 %; MCH 27.4 pg (25.0-35.0); MCHC 31.6 g/dL (31.0-37.0); MCV 86.7 fL (80.0-100.0); Mean Platelet Volume 7.6; Monocytes # (A) 0.5 k/uL (0-1.0); Monocytes % (A) 4 %; Neutrophils # (A) 11.5 k/uL (1.3-7.7); Neutrophils % (A) 86 %; Platelet Count 297 k/uL (150-450); RBC 4.51 m/uL (4.30-5.90); RDW 15.3 % (11.5-15.5); WBC 13.3 k/uL (3.8-10.6)
[2018-03-15] MEDS: CARVEDILOL 12.5 MG TAB PO SCH ×2 (06:53→17:08)
[2018-03-15] MEDS: ATORVASTATIN 20 MG TAB PO SCH (07:58)
[2018-03-15] MEDS: TRIAMTERENE-HCTZ 37.5-25MG 1 EACH CAP PO SCH (07:59)
[2018-03-15] MEDS: methylPREDNISolone SOD SUCCI 40 MG/ML 1 ML VIAL IV SCH (07:59)
[2018-03-15] MEDS: LOSARTAN 50 MG TAB PO SCH (07:59)
[2018-03-15] MEDS: FUROSEMIDE 10 MG/ML 2 ML VIAL IV SCH (07:59)
[2018-03-15] MEDS: FAMOTIDINE 20 MG/2 ML VIAL IV SCH (08:00)
[2018-03-15 09:11] VITALS: RESP 16
--- NOTE | 2018-03-15 11:26 | P.PN ---
Subjective Progress Note Date: 03/15/18 This is a pleasant 32-year-old gentleman with history of morbid obesity, hypothyroidism, prior smoking history, states he quit smoking about a month and a half ago, presented to the hospital with a 3 week duration of worsening shortness of breath. He also states that he noticed significant edema in his bilateral lower extremities. On arrival here patient was found to be significantly hypertensive, he was seen in consultation by Dr. Rosado. Blood pressure today 144/90 with a heart rate in the 70s, temperature 97.7 with 99% on 2 L of oxygen white blood cell count 11.4, hemoglobin 12.3, platelet count 266. Sodium 142, potassium 4.7, BUN 18, creatinine 0.9. Cortisol level 13. Echocardiogram with Doppler study was performed which revealed an ejection fraction of 50-55%, RV is mild to moderately enlarged, mild to moderate tricuspid regurg, severe pulmonary hypertension, moderate generalized pericardial effusion. 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 No mediastinal or hilar adenopathy. At the time of my examination this morning, patient overall states he is feeling significantly better. He did diurese well through the night last night, his weight is down 2 kg today. I pressure 136/80, heart rate in the 70s, 99% on 2 L of oxygen. 03/15/2018 Patient seen and examined this morning, feeling much better overall. Blood pressure this morning 138/80. Breathing is stable. White blood cell count 13.3 , hemoglobin 12.3, sodium 137, potassium 5.0, BUN 21, creatinine 1.0. Objective - Vital Signs Vital signs: Vital Signs Temp 98 F 03/15/18 07:55 Pulse 74 03/15/18 07:55 Resp 16 03/15/18 07:55 BP 120/77 03/15/18 07:55 Pulse Ox 95 03/15/18 07:55 Intake & Output 03/14/18 03/15/18 03/15/18 18:59 06:59 18:59 Intake Total 684 540 480 Output Total 1200 750 Balance -516 -210 480 Weight 194.8 kg 189.5 kg Intake: Oral 684 540 480 Output: Urine 1200 750 Other: Voiding Method Toilet Toilet # Voids 1 - Exam GENERAL: The patient is alert and oriented x3, not in any acute distress. Morbidly obese HEENT: Pupils are round and equally reacting to light. EOMI. No scleral icterus. No conjunctival pallor. Normocephalic, atraumatic. No pharyngeal erythema. No thyromegaly. CARDIOVASCULAR: S1 and S2 present. No murmurs, rubs, or gallops. -PULMONARY: Chest is clear to auscultation, fine expiratory wheeze noted ABDOMEN: Soft, nontender, nondistended, normoactive bowel sounds. No palpable organomegaly. MUSCULOSKELETAL: No joint swelling or deformity. -EXTREMITIES: No cyanosis, clubbing, mild bilateral pedal edema. NEUROLOGICAL: Gross neurological examination did not reveal any focal deficits. SKIN: No rashes. - Labs CBC & Chem 7: 03/15/18 06:14 03/15/18 06:14 Labs: Abnormal Lab Results - Last 24 Hours (Table) 03/15/18 03/15/18 Range/Units 06:14 06:14 WBC 13.3 H (3.8-10.6) k/uL Hgb 12.3 L (13.0-17.5) gm/dL Neutrophils # 11.5 H (1.3-7.7) k/uL BUN 21 H (9-20) mg/dL Glucose 130 H (74-99) mg/dL Total Protein 6.0 L (6.3-8.2) g/dL Albumin 3.4 L (3.5-5.0) g/dL Assessment and Plan Plan: Assessment and plan #1 congestive heart failure, preserved left ventricular systolic function, acute #2 hypertensive urgency #3 morbid obesity #4 hypothyroidism #5 moderate pericardial effusion noted on echo and computed tomography scan, computed tomography scan did not reveal any evidence of significant mass, no pulmonary embolism. Plan From cardiology's perspective, we'll continue current medications for optimal blood pressure management. We would also recommend to repeat an echocardiogram with Doppler study one week post discharge in the office with Dr. Rosado to follow-up on the pericardial effusion. DNP note has been reviewed, I agree with a documented findings and plan of care. Patient was seen and examined.
[2018-03-15] MEDS: DILTIAZEM ORAL 30 MG TAB PO SCH ×2 (11:57→15:42)
[2018-03-15 12:01] VITALS: PULSE 70
--- NOTE | 2018-03-15 12:01 | P.PN ---
Subjective Progress Note Date: 03/15/18 Principal diagnosis: Acute exacerbation of diastolic congestive heart failure with secondary pulmonary hypertension A 32-year-old obese male patient with known history of hypothyroidism, presented to the hospital because of progressive increasing shortness of breath upper the past 2 weeks in addition to lower extremity edema. Apparently the patient had quit smoking a few months back. He developed a symptoms of bronchitis and he was having increased dyspnea cough chest tightness and wheezing. Subsequently he became progressively more short of breath and he presented to his primary care physician's office where he was noted to have a systolic blood pressure in the 270 range. Patient was immediately referred to the emergency department. The patient's chest x-ray showed cardiomegaly and there is a water bottle #which raises the suspicion for pericardial effusion. Nevertheless, the echocardiogram showed moderate concentric left ventricular hypertrophy with an ejection fraction of 50-55%. There was moderate amount of generalized pericardial effusion. There is also severe pulmonary hypertension with a PA pressure of around 73 mmHg. The patient denies having any chest a child bronchial asthma. His weight has been going up and probably sinus related to flu the condition of the patient has developed increased lower extremity edema. He has typical signs infusion obstructive sleep apnea including loud snoring, witnessed apneas as reported by the girlfriend and excessive hypersomnia and sleepiness. No angina. No palpitations. No cardiac arrhythmias. No previous history of DVT or pulmonary embolism. The patient was placed on diuretics in the emergency department to which he is found at. His troponins are minimally elevated at 0.05, nonspecific findings. BNP level is 1960. Rest of the electrodes are all within normal limits. Thyroid function test shows a normal TSH. Doppler of the lower extremity shows no evidence of any DVT. Patient was reevaluated today on 03/14/2018, feeling much better, continues to diurese with diuretics quite nicely. Blood pressures seems to be better controlled. His echocardiogram showed moderate pericardial effusion that being investigated by cardiology. He had good LV function. And he had elevated right -sided pressures consistent with pulmonary hypertension. Clinically however the patient is breathing better feeling much better compared to how he felt on admission. CBC is relatively normal basic metabolic profile is relatively normal, continues to have elevated CPK and elevated troponin. Patient is being evaluated by cardiology. The patient was seen again today 03/15/2018 in follow-up on the selective care unit. He is awake and alert in no acute distress. He denies any worsening shortness of breath, cough or congestion. He is breathing is nearly back to his baseline. His blood pressure is better controlled. He remains on IV diuretics. White count 13.3. Hemoglobin 12.3. Creatinine 1.00. Objective - Vital Signs Vital signs: Vital Signs Temp 98 F 03/15/18 07:55 Pulse 74 03/15/18 07:55 Resp 16 03/15/18 07:55 BP 120/77 03/15/18 07:55 Pulse Ox 95 03/15/18 07:55 Intake & Output 03/14/18 03/15/18 03/15/18 18:59 06:59 18:59 Intake Total 684 540 480 Output Total 1200 750 Balance -516 -210 480 Weight 194.8 kg 189.5 kg Intake: Oral 684 540 480 Output: Urine 1200 750 Other: Voiding Method Toilet Toilet # Voids 1 - Exam Physical Exam: Revealed a 32-year-old white male, obese, comfortable, in no distress. HEENT:[Neck is supple.] [No neck masses.] [No thyromegaly.] [No JVD.] Crowding of the posterior pharynx noted. Chest: [Clear throughout, no crackles, no rhonchi, no wheezes.] Cardiac Exam: [Normal S1 and S2, no S3 gallop, no murmur.] Abdomen: Obese, [Soft, nontender, no megaly, no rebound, no guarding, normal bowel sounds.] Extremities: [No clubbing, 1+ bipedal edema, no cyanosis.] Neurological Exam: [No focal neurologic deficit.] Lymphatics: No lymphadenopathy. Psychiatric: Normal mood affect and mental status examination. Skin: No rashes, no erythema. - Labs CBC & Chem 7: 03/15/18 06:14 03/15/18 06:14 Labs: Abnormal Lab Results - Last 24 Hours (Table) 03/15/18 03/15/18 Range/Units 06:14 06:14 WBC 13.3 H (3.8-10.6) k/uL Hgb 12.3 L (13.0-17.5) gm/dL Neutrophils # 11.5 H (1.3-7.7) k/uL BUN 21 H (9-20) mg/dL Glucose 130 H (74-99) mg/dL Total Protein 6.0 L (6.3-8.2) g/dL Albumin 3.4 L (3.5-5.0) g/dL Assessment and Plan Assessment: Assessment: 1 dyspnea, multifactorial. The decompensating factor is most likely CHF with diastolic dysfunction and hypertensive heart disease. The patient also has a considerable degree of pulmonary hypertension and these to be further investigated. This raises the suspicion for a sleep breathing disorder/ obstructive sleep apnea. CT of the chest failed to show probable embolic disease. 2 morbid obesity BMI 58.9 3 lower extremity edema 4 hypertensive urgency current blood pressure is under better control 5 hypothyroidism 6 moderate degree of pericardial effusion without evidence of temporal not 7 acute bronchitis 8 hypertensive heart disease with concentric left ventricle hypertrophy/ diastolic heart failure [address] of the chest for pulmonary embolism, hence his pulmonary hypertension is not related to thrombolic disease. 10 secondary pulmonary hypertension needs to be further investigated on outpatient basis. Recommendation: The patient was seen and evaluated by Dr. Guerrero. He is stable from the pulmonary standpoint. Continue diuretics. Okay to discharge once cleared by cardiology. Plan for outpatient workup for suspected obstructive sleep apnea. I, the cosigning physician, performed a history & physical examination of the patient. Lungs sounds are clear. Maintaining good O2 saturations in the 90s on room air. I discussed the assessment and plan of care with my nurse practitioner, Herminia Duque. I attest to the above note as dictated by her.
[2018-03-15 16:17] VITALS: BP 133/86; TEMP 97.6
--- NOTE | 2018-03-15 18:26 | P.DS ---
Providers Date of admission: 03/12/18 12:14 Attending physician: Blue Washington MD Consults: 03/12/18 12:14 Consult Physician Stat Consulting Provider: Connor Rosado Consult Reason/Comments: Hypertensive emergency, pericardial effusion Do you want consulting provider notified?: Yes 03/13/18 00:51 Consult Physician Stat Consulting Provider: John Ashford Consult Reason/Comments: short of breath Do you want consulting provider notified?: Yes Primary care physician: [facility] Course: This is a pleasant 52 years old male with past medical history of morbid obesity , hypothyroidism, ex-smoker who presents because of dyspnea or several weeks duration associated with mild leg swelling. Patient states that his initial complaint was dyspnea which was a started 3 weeks ago and by the time he got an appointment with his PCP today his blood pressure was high with SBP 270 as per patient and they were concerned about his chest x-ray and EKG. As per report there was suspicion of pericardial disease for enlarged heart on the chest x- ray report. This was associated with worsening leg swelling and tenderness which is mild edema started yesterday as per patient. Patient denies any chest pain no dizziness or syncope. No change in urine or bowel habits. No fever. In the emergency room his troponins was noted to be 0.051. BNP 1960 sodium 140 potassium 4.4 creatinine 1.0 WBC mildly elevated at 10.8 K. Hemoglobin 12.6 and platelets 231 EKG shows sinus tachycardia at 101 BPM with QTC of 482. In the emergency room patient got Lasix 40 mg IV x1. Patient was admitted to the telemetry floor for evaluation of his symptoms. Patient has been evaluated by both pulmonary and cardiology team and they felt that his dyspnea is multifactorial most likely from CHF with diastolic dysfunctions and hypertensive heart disease. With considerable degree of pulmonary hypertension on the suspicion also for obstructive sleep apnea however CT of the chest failed to show any probable embolic disease. Morbid obesity also might be contributing to his dyspnea Also patient was found to have lower extremity edema which was improving diuretics. Echocardiogram shows moderate pericardial effusion. Veneer Taping Machine Operator evaluated the patient and recommended repeat echocardiogram and a pleasant 1 week. Patient is asked to follow-up with cardiology team which informed the medical team got to call the patient and make an appointment patient is informed and he agrees. On the presentation patient has hypertensive urgency. His blood pressure is more stabilized and then discharged on multiple antihypertensive medication, please see the discharge medication list, including Coreg, Cardizem, lisinopril , 3 diuretics and Lasix, hydrochlorothiazide and triamterene Patient showed interval improvement and on the day of discharge he says "I am better than normal"when asked if he is back to normal state. Patient was cleared by both cardiology and pulmonary team for discharge. Problem list and management plan were discussed with patient in details and applied understanding and acceptance Patient was found stable and can be discharged home however he needs follow-up as an outpatient. Anus was made with both pulmonary and PCP offices and patient agrees with the appointments and timing. Cardiology office will contact the patient for appointment patient informed and he agrees. On the discharge patient was apparently enthusiastic to lose weight and going back to his life Prescription is provided for the patient including Taper steroids upon discharge ( handwritten prescription) GENERAL: The patient is alert and oriented x3, not in any acute distress. Morbidly obese HEENT: Pupils are round and equally reacting to light. EOMI. No scleral icterus. No conjunctival pallor. Normocephalic, atraumatic. No pharyngeal erythema. No thyromegaly. CARDIOVASCULAR: S1 and S2 present. No murmurs, rubs, or gallops. PULMONARY: Chest is clear to auscultation, no wheezing or crackles. ABDOMEN: Soft, nontender, nondistended, normoactive bowel sounds. No palpable organomegaly. MUSCULOSKELETAL: No joint swelling or deformity. -EXTREMITIES: No cyanosis, clubbing, mild bilateral pedal edema. NEUROLOGICAL: Gross neurological examination did not reveal any focal deficits. SKIN: No rashes. Patient Condition at Discharge: Serious Plan - Discharge Summary New Discharge Prescriptions: New Atorvastatin [Lipitor] 20 mg PO DAILY #30 tab Carvedilol [Coreg*] 25 mg PO BID-W/MEALS #60 tab Diltiazem Oral [Cardizem*] 30 mg PO TID #90 tab Famotidine [Pepcid] 20 mg PO Q12HR #60 tab Furosemide [Lasix] 20 mg PO BID #60 tab Losartan [Cozaar] 50 mg PO HS #30 tab Losartan [Cozaar] 100 mg PO QAM #30 tab Triamterene-Hctz 37.5-25Mg [Dyazide 37.5-25 Capsule] 1 each PO DAILY #30 cap predniSONE 10 mg PO DIRECTED #21 tab Continue Loratadine [Claritin] 10 mg PO DAILY Aspirin EC [Ecotrin] 325 mg PO HS Albuterol Inhaler [Ventolin Hfa Inhaler] 1 - 2 puff INHALATION RT-Q6H PRN PRN Reason: Shortness Of Breath Discontinued diphenhydrAMINE HCL [Benadryl] 50 mg PO HS PRN PRN Reason: Allergy Symptoms Discharge Medication List Albuterol Inhaler [Ventolin Hfa Inhaler] 1 - 2 puff INHALATION RT-Q6H PRN [History] Aspirin EC [Ecotrin] 325 mg PO HS 03/12/18 [History] Loratadine [Claritin] 10 mg PO DAILY 03/12/18 [History] Atorvastatin [Lipitor] 20 mg PO DAILY #30 tab 03/15/18 [Rx] Carvedilol [Coreg*] 25 mg PO BID-W/MEALS #60 tab 03/15/18 [Rx] Diltiazem Oral [Cardizem*] 30 mg PO TID #90 tab 03/15/18 [Rx] Famotidine [Pepcid] 20 mg PO Q12HR #60 tab 03/15/18 [Rx] Furosemide [Lasix] 20 mg PO BID #60 tab 03/15/18 [Rx] Losartan [Cozaar] 50 mg PO HS #30 tab 03/15/18 [Rx] Losartan [Cozaar] 100 mg PO QAM #30 tab 03/15/18 [Rx] Triamterene-Hctz 37.5-25Mg [Dyazide 37.5-25 Capsule] 1 each PO DAILY #30 cap [Rx] predniSONE 10 mg PO DIRECTED #21 tab 03/15/18 [Rx] Follow up Appointment(s)/Referral(s): Tawanna Guerrero MD [STAFF PHYSICIAN] - 03/22/18 2:15 pm Connor Rosado MD [STAFF PHYSICIAN] - 1 Week (Office to call with follow up appointment. Repeat echocardiogram 12 April 2018 at 1100) Homero Andrews MD [Primary Care Provider] - 03/18/18 10:15 am Patient Instructions/Handouts: Low Sodium Diet (DC), Hypertensive Crisis (DC), Edema (DC)
[2018-03-15] MEDS ORDERED: FAMOTIDINE 20 MG TAB PO SCH (21:00)
[2018-03-17 14:11] LABS: Metanephrines 24 Hour,Urine 320 ug/day (52-341); Normetanephrine 24 Hour,Urine 1632 ug/day (88-444); Total Metanephrines 24 Hour,Ur 1952 ug/day (140-785)
== END 2018-03-15 18:46 | disposition home or self-care (01) | DRG 292 ==
LOC: EC 10:38 → 6SEL 12:14
PROVIDERS: ADMIT Internal Medicine; ATTEND Internal Medicine
DX: I11.0 Hypertensive heart disease with heart failure (principal); I16.1 Hypertensive emergency; I31.3 Pericardial effusion (noninflammatory); Z68.43 Body mass index [BMI] 50.0-59.9, adult; I50.43 Acute on chronic combined systolic (congestive) and diastolic (congestive) heart failure; E03.9 Hypothyroidism, unspecified; E66.01 Morbid (severe) obesity due to excess calories; G47.33 Obstructive sleep apnea (adult) (pediatric); I07.1 Rheumatic tricuspid insufficiency; I27.29 Other secondary pulmonary hypertension; J20.9 Acute bronchitis, unspecified; Z79.82 Long term (current) use of aspirin; Z79.899 Other long term (current) drug therapy; Z82.49 Family history of ischemic heart disease and other diseases of the circulatory system; Z83.3 Family history of diabetes mellitus; Z87.891 Personal history of nicotine dependence; Z88.0 Allergy status to penicillin; Z91.010 Allergy to peanuts; R73.9 Hyperglycemia, unspecified
CPT/HCPCS: 36415; 71045; 71275; 80053; 80061; 81003; 82088; 82533; 82550; 82553; 83036; 83735; 83835; 83880; 84132; 84244; 84443; 84484; 85025; 85610; 85730; 93005; 93306; 93970; 94640; 94760; 96374; 96375; 99291

== ENCOUNTER → 2018-04-07 | Outpatient (CLI) | payer OTHER ==
--- NOTE | 2018-04-08 10:03 | ECHOF ---
Referral Reason:I50.9 Congestive heart failure MEASUREMENTS -------- HEIGHT: 185.4 cm WEIGHT: 181.4 kg BP: RVIDd: 3.5 cm (< 3.3) IVSd: 1.5 cm (0.6 - 1.1) LVIDd: 5.0 cm (3.9 - 5.3) LVPWd: 1.5 cm (0.6 - 1.1) IVSs: 1.8 cm LVIDs: 3.2 cm LVPWs: 1.9 cm LAESV Index (A-L): 24.56 ml/m Ao Diam: 3.5 cm (2.0 - 3.7) AV Cusp: 1.8 cm (1.5 - 2.6) LA Diam: 3.4 cm (2.7 - 3.8) MV EXCURSION: 18.742 mm (> 18.000) MV EF SLOPE: 118 mm/s (70 - 150) EPSS: 0.8 cm MV E Tito: 0.90 m/s MV DecT: 274 ms MV A Tito: 0.88 m/s MV E/A Ratio: 1.02 RAP: 5.00 mmHg RVSP: 18.23 mmHg FINDINGS -------- Sinus rhythm. This was a technically adequate study. The left ventricular size is normal. There is moderate concentric left ventricular hypertrophy. O verall left ventricular systolic function is normal with, an EF between 55 - 60 %. The right ventricle is normal in size and function. Normal LA size by volume 22+/-6 ml/m2. The right atrium is normal in size. The aortic valve is trileaflet, and appears structurally normal. No aortic stenosis or regurgitation. The mitral valve is normal. There is trace to mild mitral regurgitation. Trace tricuspid regurgitation present. Right ventricular systolic pressure is normal at < 35 mmHg. There is no evidence of pulmonary hypertension. The pulmonic valve was not well visualized. The aortic root is mildy dilated, up to 3.9 cm. Normal inferior vena cava with normal inspiratory collapse consistent with estimated right atrial pre ssure of 5 mmHg. There is a small, generalized pericardial effusion present. CONCLUSIONS -------- 1. Sinus rhythm. 2. This was a technically adequate study. 3. The left ventricular size is normal. 4. There is moderate concentric left ventricular hypertrophy. 5. Overall left ventricular systolic function is normal with, an EF between 55 - 60 %. 6. Normal LA size by volume 22+/-6 ml/m2. 7. The aortic valve is trileaflet, and appears structurally normal. No aortic stenosis or regurgitati on. 8. There is trace to mild mitral regurgitation. 9. Trace tricuspid regurgitation present. 10. Right ventricular systolic pressure is normal at < 35 mmHg. 11. There is no evidence of pulmonary hypertension. 12. The pulmonic valve was not well visualized. 13. The aortic root is mildy dilated, up to 3.9 cm. 14. There is a small, generalized pericardial effusion present. FULL STACK WEB DEVELOPER: Wan Magaña RDCS
== END | disposition home or self-care (01) ==
LOC: RADECHMAIN 14:50
PROVIDERS: ATTEND Family Medicine
DX: I31.3 Pericardial effusion (noninflammatory) (principal); I51.7 Cardiomegaly; I50.9 Heart failure, unspecified; I35.8 Other nonrheumatic aortic valve disorders
CPT/HCPCS: 93306

== ENCOUNTER → 2021-12-01 | Outpatient (CLI) | payer OTHER ==
--- NOTE | 2021-12-03 11:05 | ECHOF ---
Referral Reason:I50.9 CHF MEASUREMENTS -------- HEIGHT: 185.4 cm WEIGHT: 208.7 kg BP: IVSd: 1.4 cm (0.6 - 1.1) LVIDd: 5.0 cm (3.9 - 5.3) LVPWd: 1.3 cm (0.6 - 1.1) EDV(Teich): 118 ml IVSs: 1.9 cm LVIDs: 3.4 cm LVPWs: 2.0 cm %IVS Thck: 40 % ESV(Teich): 48 ml EF(Teich): 59 % %FS: 32 % SV(Teich): 70 ml RVIDd: 4.2 cm (< 3.3) LALs A4C: 5.7 cm LAAs A4C: 17.5 cm LAESV A-L A4C: 45 ml LAESV MOD A4C: 45 ml LALs A2C: 6.0 cm LAAs A2C: 18.4 cm LAESV A-L A2C: 48 ml LAESV MOD A2C: 47 ml LAESV(A-L): 48 ml LAESV Index (A-L): 15.56 ml/m Ao Diam: 3.1 cm (2.0 - 3.7) LA Diam: 5.0 cm (2.7 - 3.8) AV Cusp: 2.2 cm (1.5 - 2.6) EPSS: 0.2 cm MV E Tito: 1.13 m/s MV DecT: 175 ms MV Dec [place]: 6.5 m/s MV A Tito: 1.16 m/s MV E/A Ratio: 0.97 MV PHT: 51 ms LVOT Vmax: 1.21 m/s LVOT maxP.82 mmHg AV Vmax: 1.59 m/s AV maxP.14 mmHg PV Vmax: 1.80 m/s PV maxP.90 mmHg TR Vmax: 2.51 m/s TR maxP.24 mmHg RAP: 5.00 mmHg RVSP: 30.24 mmHg MV EF SLOPE: 45.65 mm/s (70 - 150) MV EXCURSION: 24.32 mm (> 18.000) FINDINGS -------- Sinus rhythm. This was a technically adequate study. The left ventricular size is normal. There is moderate concentric left ventricular hypertrophy. O verall left ventricular systolic function is low-normal with, an EF between 50 - 55 %. The right ventricle is moderately enlarged. Normal LA size by volume 22+/-6 ml/m2. The right atrial size is normal. Interatrial and interventricular septum intact. The aortic valve is trileaflet and appears structurally normal. There is no evidence of aortic regu rgitation. There is no evidence of aortic stenosis. There is trace to mild mitral regurgitation. Mild tricuspid regurgitation present. There is no evidence of pulmonary hypertension. The right v entricular systolic pressure, as measured by Doppler, is 30.24mmHg. There is no pulmonic regurgitation present. The aortic root size is normal. IVC Not well visulized. There is no pericardial effusion. CONCLUSIONS -------- 1. The left ventricular size is normal. 2. There is moderate concentric left ventricular hypertrophy. 3. Overall left ventricular systolic function is low-normal with, an EF between 50 - 55 %. 4. The right ventricle is moderately enlarged. 5. There is trace to mild mitral regurgitation. 6. Mild tricuspid regurgitation present. CONCRETE PANEL INSTALLER: Luisa Hart [facility]
== END | disposition home or self-care (01) ==
LOC: RADECHMAIN 13:11
PROVIDERS: ATTEND Family Medicine
DX: I08.1 Rheumatic disorders of both mitral and tricuspid valves (principal)
CPT/HCPCS: 93306